=== PATIENT | male | born 1955 | race Caucasian/White ===

== ENCOUNTER 2020-03-29 20:13 | Emergency (ER) | payer MEDICARE ==
[2020-03-29 20:41] LABS: BASOPHIL 0.5 % (0-2); HCT 45.1 % (42.0-52.0); HGB 15.2 g/dl (13.2-18.0); LYMPHOCYTE 12.4 % (15-48); MCH 28.6 pg (25.0-31.0); MCHC 33.7 g/dL (32.0-36.0); MCV 84.9 fL (78.0-100.0); MPV 9.5 fL (6.0-9.5); NEUTROPHIL 78.9 % (41-80); NRBC 0; PLT 275 K/uL (150-400); RBC 5.31 M/uL (4.70-6.00); RDW 12.6 % (11.5-14.0); WBC 9.9 K/uL (4.0-10.5)
[2020-03-29 20:58] LABS: PRO-BNP 62 pg/mL (<125)
[2020-03-29 22:38] LABS: ALBUMIN 4.7 g/dL (3.4-5.0); BILIRUBIN - TOTAL 0.7 mg/dL (0.2-1.0); BUN/CREAT RATIO (CALC) 23.4 RATIO; CREATININE 0.77 mg/dL (0.67-1.17); GLOBULIN (CALCULATION) 3.3 g/dL
[2020-03-29 23:34] LABS: CORONAVIRUS 2019 SARS-COV-2 NEGATIVE (NEGATIVE); INFLUENZA A NAA NEGATIVE (NEGATIVE)
[2020-03-29] MEDS ORDERED: VIBRAMYCIN100 MG PO (23:48)
[2020-03-29] MEDS ORDERED: ATROVENT INHALE14 GM INH (23:48)
[2020-03-29] MEDS ORDERED: VENTOLIN HFA IN18 GM INH (23:48)
[2020-03-29] MEDS ORDERED: MEDROL 4MG DOSEP4 MG PO (23:50)
== END 2020-03-30 00:35 | disposition home or self-care (01) ==
LOC: FER 20:13
PROVIDERS: Student in an Organized Health Care Education/Training Program
DX: J44.1 Chronic obstructive pulmonary disease with (acute) exacerbation (principal); I10 Essential (primary) hypertension; E11.9 Type 2 diabetes mellitus without complications; Z88.6 Allergy status to analgesic agent; Z79.899 Other long term (current) drug therapy; Z20.822 Contact with and (suspected) exposure to COVID-19
CPT/HCPCS: 36415; 36600; 71045; 80053; 82803; 83880; 84484; 85025; 94640; 94664; 94760; J2930; U0002

== ENCOUNTER 2020-04-17 01:51 | Emergency (ER) | payer OTHER ==
[~2020-04-17 01:51] MED LIST: ATROVENT INHALE14 GM INH; MEDROL 4MG DOSEP4 MG PO; VENTOLIN HFA IN18 GM INH; VIBRAMYCIN100 MG PO
[2020-04-17 02:13] LABS: BASOPHIL 0.4 % (0-2); HCT 44.3 % (42.0-52.0); HGB 14.9 g/dl (13.2-18.0); LYMPHOCYTE 19.7 % (15-48); MCH 28.9 pg (25.0-31.0); MCHC 33.6 g/dL (32.0-36.0); MCV 85.9 fL (78.0-100.0); MONOCYTE 8.5 % (0-12); NRBC 0; PLT 246 K/uL (150-400); RBC 5.16 M/uL (4.70-6.00); RDW 12.9 % (11.5-14.0); WBC 11.7 K/uL (4.0-10.5)
[2020-04-17 02:29] LABS: ALBUMIN 3.8 g/dL (3.4-5.0); BILIRUBIN - TOTAL 0.6 mg/dL (0.2-1.0); BUN/CREAT RATIO (CALC) 21.8 RATIO; CREATININE 0.78 mg/dL (0.67-1.17); GLOBULIN (CALCULATION) 3.3 g/dL; POTASSIUM 3.5 mmol/L (3.5-5.1); TOTAL PROTEIN 7.1 g/dL (6.4-8.2)
[2020-04-17 02:32] LABS: LACTIC ACID 0.8 mmol/L (0.4-1.9)
== END 2020-04-17 05:57 | disposition other institution (70) ==
LOC: FER 01:51
PROVIDERS: Emergency Medicine Emergency Medical Services
DX: J44.1 Chronic obstructive pulmonary disease with (acute) exacerbation (principal); R00.0 Tachycardia, unspecified; I10 Essential (primary) hypertension; E78.5 Hyperlipidemia, unspecified; Z87.891 Personal history of nicotine dependence; Z88.6 Allergy status to analgesic agent; Z20.822 Contact with and (suspected) exposure to COVID-19
CPT/HCPCS: 36415; 36600; 71045; 80053; 82803; 83605; 84484; 85025; 85379; 87040; 93005; 94640; 94664; J0456; J0696; J2930; J7050; U0002